=== PATIENT | male | born 1985 | race Caucasian/White ===

== ENCOUNTER 2018-03-24 08:10 | Inpatient (IN) | payer BC, OTHER ==
[~2018-03-24] VITALS: Ht 180.3 cm; Wt 120.7 kg
[2018-03-24] MEDS ORDERED: ONDANSETRON ODT 4 MG TAB.RAPDIS SL PRN (10:45)
[2018-03-24] MEDS ORDERED: HYDROXYZINE PAMOATE 25 MG CAPSULE PO PRN (10:45)
[2018-03-24] MEDS ORDERED: ONDANSETRON 4 MG/2 ML VIAL IM PRN (10:45)
[2018-03-24] MEDS ORDERED: MAGNESIUM HYDROXIDE 30 ML LIQUID UDC PO PRN (10:45)
[2018-03-24] MEDS ORDERED: LOPERAMIDE HCL 2 MG CAPSULE PO PRN ×2 (10:45)
[2018-03-24] MEDS ORDERED: MAG HYDROX/AL HYDROX/SIMETH 30 ML LIQUID UDC PO PRN (10:45)
[2018-03-24] MEDS ORDERED: MIRALAX 17 GM POWD.PACK PO PRN (10:45)
[2018-03-24] MEDS ORDERED: METHOCARBAMOL 750 MG TABLET PO PRN (10:45)
[2018-03-24] MEDS ORDERED: diphenhydrAMINE 50 MG CAPSULE PO PRN (10:45)
[2018-03-24] MEDS ORDERED: DICYCLOMINE HCL 20 MG TABLET PO PRN (10:45)
[2018-03-24] MEDS ORDERED: IBUPROFEN 600 MG TABLET PO PRN (10:45)
[2018-03-24] MEDS ORDERED: ACETAMINOPHEN 325 MG TABLET PO PRN (10:45)
--- NOTE | 2018-03-24 10:45 | NUR ---
Pre Assessment Pre-Assessment completed in intake office. Pt. is a 32 y/o male attempting to be admitted for the management of opiate withdrawal. Pt. A/O X 4, and denies any AH, VH, SI, and HI. Pt. presents with flushed facial skin, anxiety, restlessness and diaphoresis. Pt.'s affect is depressed. Pt. is ambulatory with a steady gait, continent with skin intact. Pt. reports consuming 15 tabs of Oxycodone 30mg a day for the past 8-9 months. Last consumed was 0400 this morning when pt. was getting ready to board his flight into [place]. Pt. reports a medical Hx of gout, asthma (with no inhaler use), depression, anxiety, and ADD. Pt. denies a past Hx of seizures. Pt. V/S at this moment are BP: 125/80, HR: 93, O2sat: 93%, RR:18, Temp: 98.7 pt. denies any pain at this time. Home Medications: Adderrall XR 15mg qD Clonazepam 0.5mg PRN qD Allopurinol 300mg qD Bupropion HCL XL 300mg qD Lamotrigine 200mg qHS Quetiapine Fumarate 50mg qHS Substance Use Hx: Pt. first used oxycodone at 30 y/o. Pt. consumes 15 tabs of oxycodone 30mg a day for the last 8-9 months. Last time consumed was this morning at about 0400. This is the pt.'s first time in treatment.
--- NOTE | 2018-03-24 11:30 | NUR ---
Admission Note Pt. is a 32 y/o male admitted for the management of opiate withdrawal. At the moment pt. was placed on PRN medication to manage his withdrawal symptoms. Pt. set to start a 5 day Subutex taper tomorrow morning 03/25/18. Pt. A/O X 4, and denies any AH, VH, SI, and HI. Pt. presents with flushed facial skin, anxiety, restlessness and diaphoresis. Pt.'s affect is flat with a depressed mood. Pt. is ambulatory with a steady gait, continent with skin intact. Pt. reports consuming 15 tabs of Oxycodone 30mg a day for the past 8-9 months. Last consumed was 0400 this morning when pt. was getting ready to board his flight into [place]. Pt. reports a medical Hx of gout, asthma (with no inhaler use), depression, anxiety, and ADD. Pt. denies a past Hx of seizures. Pt. V/S at this moment are BP: 137/92, HR: 91, O2sat: 100%, RR:14, Temp: 98.5 pt. denies any pain at this time. Home Medications: Adderrall XR 15mg qD Clonazepam 0.5mg PRN qD Allopurinol 300mg qD Bupropion HCL XL 300mg qD Lamotrigine 200mg qHS Quetiapine Fumarate 50mg qHS Substance Use Hx: Pt. first used oxycodone at 30 y/o. Pt. consumes 15 tabs of oxycodone 30mg a day for the last 8-9 months. Last time consumed was this morning at about 0400. This is the pt.'s first time in treatment. Pt. states he's never seriously tried to quit before. Pt. states he uses to "escape reality and to feel temporarily good." Pt. reports attempting to sober up 8-9 months ago and was able to stop using opiates for 4-5 days. The negative effects of withdrawal and the pt.'s ongoing struggle with depression triggered the pt.'s relapse. Pt. states " I dont want opiates in my life, I don't want to go where that road leads, and my use is starting to get out of control. I dont want to end up using heroin but I know thats where I'm headed." Pt. had Suboxone in his belongings and stated he's never taken it before. He states " A friend gave them to me because I keep wanting to quit but I just can't manage it on my own that's why I'm here." Pt. denies any family history of substance abuse. Medical Hx. Gout (only affects his left ankle), Asthma (pt. does not use inhaler), Depression, Anxiety, ADD Pt. states that a major reason for his use is ongoing struggle with depression. Pt. denies any previous mental health hospitalization, and denies any previous attempt at suicide. Pt. has Clonazepam as a home medication but denies abusing it. Pt. states " I only use it to take the edge off during social and public events." Pt. oriented to the units policies and procedures. Safety measures in place. Pt. currently only at a COW's of 10. Will continue to monitor pt.'s behavior for safety.
[2018-03-24 11:31] LABS: *AMPHETAMINE, URINE POSITIVE (NEGATIVE); *BARBITURATE, URINE NEGATIVE (NEGATIVE); *CANNABINOID, URINE NEGATIVE (NEGATIVE); *COCCAINE, URINE NEGATIVE (NEGATIVE); *OPIATE, URINE POSITIVE (NEGATIVE); *PHENCYCLIDINE SCREEN,URINE NEGATIVE (NEGATIVE)
[2018-03-24 11:48] LABS: BASOPHILS % (AUTO) 0.5 % (0.0-2.0); EOSINOPHILS # (AUTO) 0.6 K/uL (0.0-0.7); EOSINOPHILS % (AUTO) 7.1 % (0.0-7.0); HEMATOCRIT 41.9 % (36.7-47.1); HEMOGLOBIN 14.4 g/dL (12.5-16.3); LYMPHOCYTES # (AUTO) 3.8 K/uL (20.0-40.0); LYMPHOCYTES % (AUTO) 43.4 % (20.5-51.5); MEAN CORPUSCULAR HEMOGLOBIN 29.8 uug (23.8-33.4); MEAN CORPUSCULAR HGB CONC 34 g/dL (32.5-36.3); MONOCYTES # (AUTO) 0.7 K/uL (2.0-10.0); MONOCYTES % (AUTO) 7.9 % (0.0-11.0); NEUTROPHILS # (AUTO) 3.6 K/uL (1.8-8.9); NEUTROPHILS % (AUTO) 41.1 % (38.5-71.5); PLATELET COUNT (AUTO) 257 K/uL (152-348); RED BLOOD CELL COUNT(AUTO) 4.81 MIL/uL (4.06-5.63); WHITE BLOOD COUNT (AUTO) 8.7 K/uL (3.6-10.2)
[2018-03-24 12:00] VITALS: BP 137/92
[2018-03-24 12:06] LABS: ALANINE AMINOTRANSFERASE 69 U/L (16-63); ALKALINE PHOSPHATASE 83 U/L (50-136); ASPARTATE AMINOTRANSFERASE 39 U/L (15-37); BILIRUBIN,TOTAL 0.4 mg/dL (0.2-1.0); CARBON DIOXIDE 31 mmol/L (21-32); CHLORIDE 102 mmol/L (98-107); CREATININE 0.8 mg/dL (0.6-1.3); GLUCOSE 95 mg/dL (74-106); POTASSIUM 3.8 mmol/L (3.5-5.1); TOTAL PROTEIN, SERUM 7.4 g/dL (6.4-8.2); UREA NITROGEN, BLOOD 13 mg/dL (7-18)
[2018-03-24] MEDS ORDERED: BUPR300T54 PO (12:20)
[2018-03-24] MEDS ORDERED: AMPH15TA2 PO (12:20)
[2018-03-24] MEDS ORDERED: ALLO300T2 PO (12:20)
[2018-03-24] MEDS ORDERED: LAMO200T PO (12:20)
[2018-03-24] MEDS ORDERED: QUET50TA PO (12:20)
[2018-03-24] MEDS ORDERED: CLON0.5T12 PO (12:20)
[2018-03-24] MEDS: CLONIDINE HCL 0.1 MG TABLET PO PRN (12:23)
--- NOTE | 2018-03-24 12:23 | NUR ---
PRN Medication Pt. laying in bed with eyes open watching television. Pt. stated " I feel anxious is there anything you can give me for that." Pt. given PRN clonidine at this time. Will continue to monitor pt.'s behavior for medication effectiveness and safety.
[2018-03-24 12:47] LABS: ETHANOL < 3 MG/DL (0-0)
--- NOTE | 2018-03-24 13:30 | NUR ---
PRN Re-Assessment Pt. in bed with eyes closed. No signs of SOB noted. Medication effective. Will continue to monitor pt.'s behavior for safety.
[2018-03-24] MEDS ORDERED: EPIN0.3P3 IJ (14:04)
[2018-03-24] MEDS ORDERED: SIME125C81 PO (14:04)
[2018-03-24] MEDS ORDERED: DIPH25CA83 PO (14:04)
[2018-03-24] MEDS ORDERED: ASPI-973 PO (14:04)
[2018-03-24] MEDS ORDERED: BISA-79 PO (14:04)
[2018-03-24 17:05] VITALS: BP 138/93
[2018-03-24] MEDS ORDERED: Medication Not On Formulary EA (Bupropion Hcl (Bupropion Xl) 1 TAB) PO SCH (17:30)
[2018-03-24] MEDS: buPROPion XL 150 MG TAB.SR.24H PO SCH (17:43)
[2018-03-24] MEDS: QUETIAPINE FUMARATE 25 MG TABLET PO SCH (18:01)
[2018-03-24] MEDS: BUPRENORPHINE HCL 2 MG TAB.SUBL SL PRN ×2 (18:06→22:24)
--- NOTE | 2018-03-24 18:06 | NUR ---
PRN Medication Pt. presents with flushed facial skin, anxiety, restlessness, and is reporting 7/10 body aches. Gave pt. PRN Subutex at this time to manage withdrawal symptoms. Will continue to monitor pt.'s behavior for safety.
--- NOTE | 2018-03-24 18:53 | NUR ---
PRN Re-Assessment Pt. laying in bed with eyes closed. Respirations even and unlabored. Pt. still presents with facial flushing. Medication effective. Will continue to monitor for safety.
--- NOTE | 2018-03-24 19:00 | NUR ---
End of Shift Note Pt. is a 32 y/o male newly admitted for the medically managed withdrawal from opiates. Pt. was placed on PRN medications to help managed his symptoms. He is scheduled to begin a 5 day subutex taper tomorrow. Pt. presents with flushed facial skin, depressed mood, anxiety, restlessness and a flat affect. Once on the unit PRN Clonidine and Subutex given for withdrawal symptoms. Last CIWA of 16 at 1800. Safety measures in place. Will endorse pt.s care to oncoming shift.
--- NOTE | 2018-03-24 19:09 | NUR ---
Start of shift note Received report from day shift nurse. Pt is a 32 yo male, A+Ox4, presenting to [facility] for Opiate withdrawal. Pt noted to be irritable, fatigued, and agitated. Pt has HX of Gout, Asthma, Depression, and ADD which will be monitored during shift. Pt is to start 5 day Subutex taper tomorrow. Pt is on PRN medications until AM, tolerated well. Respirations even and unlabored. Will continue to monitor.
[2018-03-24 20:06] VITALS: BP 121/84
--- NOTE | 2018-03-24 20:07 | NUR ---
COWS: 14, Pt noted with piloerection of skin, irritability, anxiety, yawning, diffuse aching, enlarged pupils, restlessness, sweat on brow, and pulse rate between 81-100. Respirations even and unlabored. Will continue to monitor.
[2018-03-24] MEDS: LAMOTRIGINE 200 MG TABLET PO SCH (21:49)
--- NOTE | 2018-03-24 22:19 | NUR ---
COWS: 14, Pt noted with piloerection of skin, irritability, anxiety, yawning, diffuse aching, enlarged pupils, restless legs, sweat on brow, and pulse rate between 81-100. Respirations even and unlabored. Will continue to monitor.
--- NOTE | 2018-03-24 22:25 | NUR ---
PRN Subutex 4mg Pt c/o opiate withdrawal and noted with COWS: 14. PRN Subutex 4mg given and tolerated well. Will reassess within 30 minutes. Will continue to monitor.
--- NOTE | 2018-03-24 22:45 | NUR ---
PRN Subutex 4mg Reassessment COWS: 12. Medication effective. Pt expresses reduction in restlessness. No s/s of ASE noted at this time. Respirations even and unlabored. Will continue to monitor.
--- NOTE | 2018-03-25 00:58 | NUR ---
V/S refused and COWS deferred for sleep. Respirations even and unlabored. Will continue to monitor.
--- NOTE | 2018-03-25 04:13 | NUR ---
V/S refused and COWS deferred for sleep. Respirations even and unlabored. Will continue to monitor. Addendum: 03/25/18 at 0423 by LIBERTAD MAYEN LVN Pt woke up, will perform COWS assessment and V/S.
[2018-03-25 04:20] VITALS: BP 128/89
[2018-03-25] MEDS: BUPRENORPHINE HCL 2 MG TAB.SUBL SL PRN (04:20)
--- NOTE | 2018-03-25 04:23 | NUR ---
PRN Subutex 4mg Pt c/o opiate withdrawal and noted with COWS: 14. PRN Subutex 4mg given and tolerated well. Will reassess within 30 minutes. Respirations even and unlabored. Will continue to monitor.
--- NOTE | 2018-03-25 04:50 | NUR ---
PRN Subutex Reassessment Medication effective. Pt noted with COWS: 11. No s/s of ASE noted at this time. Respirations even and unlabored. Will continue to monitor.
--- NOTE | 2018-03-25 06:52 | NUR ---
End of shift note Pt was continuously noted with restlessness, sweating, agitation, anxiety, and general body aches. Pt remained in room for majority of shift except to get food from kitchen. Pt remained compliant and cooperative with all aspects of treatment. Pt was given PRN Subutex 4mg @2219 and @0421. Pt is on 5 day Subutex taper to start today. Pt slept for a total of 10 HRS. Last COWS: 11 @0450. Respirations even and unlabored. Will endorse to day shift nurse.
--- NOTE | 2018-03-25 07:30 | NUR ---
START OF SHIFT Pt 32 y/o male admitted for opiate withdrawal. Pt received with eyes closed resting but easily arousable to name. Perrla. Pt alert and oriented to name, place, and time. Skin warm and moist to touch. Respirations even and unlabored. Bilateral hand tremors noted. Pt appears disheveled and unkempt. Clothes and empty drink bottles scattered throughout the room. Encouraged to maintain hygiene. Pt anxious and irritable this morning. Pt also with c/o body aches this morning. It was reported that pt slept for 10 hours last night. It was reported that pt received subutex prn per MD order last night twice. Last reported cows=11 @ 0450. Pt is on a 5 day subutex taper and is on day 1. Bed on lowest position with side rails x2 up for safety. Call light within reach.
[2018-03-25 08:00] VITALS: BP 136/84
--- NOTE | 2018-03-25 08:00 | NUR ---
COWS ASSESSMENT cows=13. Pt observed with bilateral hand tremors. Perspiration on head and skin noted. Pt irritable and noted with episodes of clenching teeth. Pt anxious not able to lay still.
[2018-03-25 08:08] LABS: HEPATITIS B SURFACE AG Negative (Negative)
[2018-03-25] MEDS: BUPRENORPHINE HCL 2 MG TAB.SUBL SL SCH ×4 (08:16→21:30)
[2018-03-25] MEDS: MULTIVITAMINS,THERAPEUTIC TABLET PO SCH (08:16)
[2018-03-25] MEDS: buPROPion XL 150 MG TAB.SR.24H PO SCH (08:16)
[2018-03-25] MEDS ORDERED: METHOCARBAMOL 500 MG TABLET PO PRN (08:45)
[2018-03-25] MEDS ORDERED: 5 DAY TAPER BUPRENORPHINE -SERENITY PROTOCOL SL PRN (09:00)
[2018-03-25] MEDS ORDERED: TUBERCULIN,PURIF.PROT.DERIV. 5 TU/0.1 ML TEST ID ONE (09:00)
[2018-03-25 12:00] VITALS: BP 133/82
--- NOTE | 2018-03-25 12:00 | NUR ---
COWS ASSESSMENT cows=13. Pt observed with bilateral hand tremors. Pt easily irritable. Pt states skin is crawling. Pt anxious not able to lay still.
[2018-03-25 16:00] VITALS: BP 136/88
--- NOTE | 2018-03-25 16:00 | NUR ---
COWS ASSESSMENT cows=13. Pt observed with bilateral hand tremors. Pt irritable. Pt anxious not able to lay still. Pt with complaints of chills and sweats.
[2018-03-25] MEDS: QUETIAPINE FUMARATE 25 MG TABLET PO SCH (17:10)
--- NOTE | 2018-03-25 18:36 | NUR ---
END OF SHIFT Pt 32 y/o male admitted for opiate withdrawal. Pt alert and oriented to name, place, and time. Perrla. Skin warm and moist to touch. Respirations even and unlabored. Bilateral hand tremors noted. Pt isolative to room throughout the day. Pt appears disheveled. Clothes scattered throughout the room. Encouraged to maintain hygiene. Pt with flat affect. Pt with low motivation for self care. Pt did not attend group activity. Pt was seen by MD today. Pt medication compliant. Pt is on a 5 day subutex taper and is on day 1. Pt was c/o mostly chills, sweats, and body aches throughout the day. Last cows=13 @1600. Bed on lowest position with side rails x2 up for safety. Call light within reach.
--- NOTE | 2018-03-25 19:10 | NUR ---
Start of shift note Received report from day shift nurse. Pt is a 32 yo male, A+Ox4, presenting to [facility] for Opiate withdrawal. Pt noted to be fatigued, agitated, sweating, and having body aches. Pt has HX of Gout, Asthma, Depression, and ADD which will be monitored during shift. Pt is on 5 day Subutex taper, tolerated well. Respirations even and unlabored. Will continue to monitor.
[2018-03-25 20:18] VITALS: BP 125/76
--- NOTE | 2018-03-25 20:18 | NUR ---
COWS: 13. Pt noted with pulse between 81-100, chills, restlessness, enlarged pupils, mild body aches, stuffy nose, fine tremors, yawning, and piloerection of skin. Respirations even and unlabored. Will continue to monitor.
[2018-03-25] MEDS: LAMOTRIGINE 200 MG TABLET PO SCH (21:29)
--- NOTE | 2018-03-26 00:30 | NUR ---
V/S refused and COWS deferred for sleep. Respirations even and unlabored. Will continue to monitor.
--- NOTE | 2018-03-26 04:21 | NUR ---
V/S refused and COWS deferred for sleep. Respirations even and unlabored. Will continue to monitor.
--- NOTE | 2018-03-26 07:30 | NUR ---
START OF SHIFT Pt 32 y/o male admitted for opiate withdrawal. Pt received with eyes closed resting but easily arousable to name. Perrla. Pt alert and oriented to name, place, and time. Skin warm and moist to touch. Respirations even and unlabored. Bilateral hand tremors noted. Pt appears disheveled and unkempt. Empty drink bottles scattered throughout the room. Encouraged to maintain hygiene. Pt anxious this morning. It was reported that pt slept for 11 hours last night. Last reported cows=15 @ 2000. Pt is on a 5 day subutex taper and is on day 2. Bed on lowest position with side rails x2 up for safety. Call light within reach.
[2018-03-26 08:00] VITALS: BP 143/90
--- NOTE | 2018-03-26 08:00 | NUR ---
COWS ASSESSMENT cows=13. Pt with c/o chills/ sweats. Bilateral hand tremors noted. Pt states feels skin is crawling and has goosebumps.Pt irritable and anxious this morning.
[2018-03-26] MEDS: ALLOPURINOL 300 MG TABLET PO SCH (08:33)
[2018-03-26] MEDS: buPROPion XL 150 MG TAB.SR.24H PO SCH (08:33)
[2018-03-26] MEDS: BUPRENORPHINE HCL 2 MG TAB.SUBL SL SCH ×3 (08:33→21:53)
[2018-03-26] MEDS: MULTIVITAMINS,THERAPEUTIC TABLET PO SCH (08:33)
[2018-03-26 12:00] VITALS: BP 145/91
--- NOTE | 2018-03-26 12:00 | NUR ---
COWS ASSESSMENT cows=13. Pt with c/o chills and sweats. Perspiration noted all over bt's forehead. Bilateral hand tremors noted. Pt states feels skin is crawling and has goosebumps.Pt irritable and anxious this morning.
[2018-03-26 16:00] VITALS: BP 138/80
--- NOTE | 2018-03-26 16:00 | NUR ---
COWS ASSESSMENT cows=13. Pt with c/o chills and sweats. Skin warm and moist to touch. Bilateral hand tremors noted. Pt states has goosebumps. Pt irritable and anxious at this time. Pt not able to lay still in bed.
--- NOTE | 2018-03-26 18:25 | NUR ---
END OF SHIFT Pt 32 y/o male admitted for opiate withdrawal. Pt alert and oriented to name, place, and time. Perrla. Skin warm and moist to touch. Respirations even and unlabored. Bilateral hand tremors noted. Pt isolative to room throughout the day. Pt appears disheveled. Empty drink bottles scattered throughout the room. Encouraged to maintain hygiene. Pt with flat affect. Pt with low motivation for self care. Pt isolative to room throughout the day. Pt did not attend group activity. Pt was seen by MD today. Pt medication compliant. Pt is on a 5 day subutex taper and is on day 2. Last cows= 13@1600. Bed on lowest position with side rails x2 up for safety. Call light within reach.
--- NOTE | 2018-03-26 19:49 | NUR ---
START OF SHIFT NOTE Rcvd report from outgoing nurse, pt is in his room. Pt is a 32 y/o male A/O to person, place, time, and purpose. Pt was admitted for medically supervised withdrawal from Opiates (Oxycodone). Pt has a past medical h/o asthma, gout, depression, and ADHD. Pt is c/o and presents w/ anxiety (In the form of fidgety legs), sweats, and hot flashes. No PRN medications were given during the previous shift. Pt denies S/I and H/I. Last COWS 13 @ 1600. Call light is within reach. Pt will continue to be monitored and needs met.
[2018-03-26 20:00] VITALS: BP 126/93
--- NOTE | 2018-03-26 20:00 | NUR ---
COWS ASSESSMENT COWS 12. Pt presenting w/ anxiety, sweats, hot flahses, and fidgety legs.
[2018-03-26] MEDS: QUETIAPINE FUMARATE 25 MG TABLET PO SCH (21:53)
[2018-03-26] MEDS: LAMOTRIGINE 200 MG TABLET PO SCH (21:53)
--- NOTE | 2018-03-26 21:53 | NUR ---
PRN BENADRYL ADMINISTRATION Benadryl 50mg given for sleep. Pt c/o insomnia. V/S are stable. Will reassess pt in 1 hr.
--- NOTE | 2018-03-26 22:53 | NUR ---
PRN BENADRYL REASSESSMENT Pt is in bed w/ his eyes closed. Pt's respirations are unlabored and even.
--- NOTE | 2018-03-27 | NUR ---
COWS DEFERRED AND V/S REFUSED Pt is in bed w/ his eyes closed. Pt's respirations are even and unlabored.
--- NOTE | 2018-03-27 04:01 | NUR ---
COWS DEFERRED AND V/S REFUSED Pt is in bed w/ his eyes closed. Pt's respirations are unlabored and even.
--- NOTE | 2018-03-27 07:14 | NUR ---
END OF SHIFT NOTE Endorsed pt to oncoming nurse, pt is currently in his room. Pt is a 32 y/o male A/O to person, place, time, and purpose. Pt was admitted for medically supervised withdrawal from Opiates (Oxycodone). Pt has a past medical h/o asthma, gout, depression, and ADHD. Pt is c/o and presents w/ anxiety (In the form of fidgety legs), insomnia, sweats, and hot flashes. PRN Benadryl 50mg given @ 2150 for sleep, noted effective. Pt's fluid intake was 1.300 ml and he voided 1 time. Pt slept for 6.5 hrs. Last COWS 12 @ 2000. Call light is within reach.
[2018-03-27 08:00] VITALS: BP 135/74
--- NOTE | 2018-03-27 08:00 | NUR ---
COWS ASSESSMENT 0800 COWS 14. PT HAS A FLAT AFFECT, PRESENTS ANXIETY, AGITATION, RESTLESSNESS, PUPILS LARGER THAN NORMAL, GENERALIZED BODY ACHES, INTERMITTENT COLD/HOT FLASHES AND GOOSEBUMPS, DIAPHORESIS, TREMORS ARE NOTED.
--- NOTE | 2018-03-27 08:00 | NUR ---
START OF SHIFT PT IS A 32 Y/O M ADMITTED ON FOR MEDICALLY SUPERVISED OPIATE- OXYCODONE WITHDRAWAL. PT IS PLACED ON 5 DAY SUBUTEX TAPER AND TOLERATING WELL. PT IS A/OX4, RESPIRATIONS EVEN AND UNLABORED. PT PRESENTS A FLAT AFFECT, ANXIETY, AGITATION, RESTLESSNESS, HOT/COLD FLASHES, DIAPHORESIS, PT HAS FIDGETY MOVEMENT OF THE LEGS. PT SLEPT 7 HRS, BENADRYL PRN GIVEN LAST SHIFT. LAST COWS 12. EDUCATED PT WITH TODAY'S PLAN OF CARE AND MED REGIMEN. SIDE RAILS UPX2 AND PADDED, BED IN LOWEST POSITION. CALL LIGHT WITHIN REACH. SAFETY MEASURES IN PLACE. WILL CONTINUE TO MONITOR.
[2018-03-27] MEDS ORDERED: BUPRENORPHINE HCL 2 MG TAB.SUBL SL SCH (09:00)
[2018-03-27] MEDS: MULTIVITAMINS,THERAPEUTIC TABLET PO SCH (09:31)
[2018-03-27] MEDS: ALLOPURINOL 300 MG TABLET PO SCH (09:31)
[2018-03-27] MEDS: buPROPion XL 150 MG TAB.SR.24H PO SCH (09:35)
[2018-03-27 12:00] VITALS: BP 128/94
--- NOTE | 2018-03-27 12:00 | NUR ---
COWS ASSESSMENT 1200 COWS 15. PT IS CURRENTLY SITTING IN HIS ROOM BY THE WINDOW LOOKING OUTSIDE. PT PRESENTS A FLAT AFFECT, INTERMITTENT CHILLS, DIAPHORETIC, RESTLESSNESS, PUPILS LARGER THAN NORMAL, GENERALIZED BODY ACHES, HR:99 AND TREMORS NOTED.
[2018-03-27] MEDS: BUPRENORPHINE HCL 2 MG TAB.SUBL SL SCH ×2 (15:07→21:32)
[2018-03-27 16:00] VITALS: BP 149/94
--- NOTE | 2018-03-27 16:00 | NUR ---
COWS ASSESSMENT 1600 COWS 14. PT REFUSED TO GO TO GROUPS, IS WITHDRAWN, CONTINUES TO HAVE RESTLESSNESS, ANXIETY, AGITATION, RESTLESSNESS, GENERALIZED BODY ACHES, INTERMITTENT COLD/HOT FLASHES AND DIAPHORESIS, TREMORS ARE NOTED. Addendum: 03/27/18 at 1725 by SORAIDA COVARRUBIAS RN BP: 149/94 HR: 99, RR: 18, O2SAT: 100%, TEMP: 98.8
--- NOTE | 2018-03-27 19:43 | NUR ---
END OF SHIFT PT IS REFUSES TO GO TO GROUPS AND STATED, "I WILL BE GOING TO GROUPS ALL DAY AT THE TREATMENT CENTER. PT HAS BEEN ISOLATIVE IN ROOM AND IS WITHDRAWN. 0 PRNS GIVEN. LAST COWS 14. FLUID INTAKE 2134ML, VOIDED X3, BM X1. SAFETY MEASURES IN PLACE. ENDORSEMENT GIVEN TO FIRE HYDRANT OPERATOR NURSE.
--- NOTE | 2018-03-27 19:53 | NUR ---
START F SHIFT NOTE Rcvd report from outgoing nurse, pt is currently in group therapy. Pt is a 32 y/o male A/O to person, place, time, and purpose. Pt was admitted for medically supervised withdrawal from Opiates. Pt has been c/o body aches, sweats, chills, and hot flashes. Pt has been presenting w/ depressed and withdrawn mood, flat affect, anxiety, agitation/fidgety, and fine tremors. Pt denies any S/I and H/I. Pt rcvd no PRN medications during previous shift. Last COWS 14 @ 1600. Call light is within reach. Pt will continue to be monitored and needs met.
[2018-03-27 20:00] VITALS: BP 133/87
--- NOTE | 2018-03-27 20:03 | NUR ---
COWS ASSESSMENT COWS 12. Pt experiencing anxiety, agitation, fine tremors, body aches, and hot flashes w/ sweats.
[2018-03-27] MEDS: LAMOTRIGINE 200 MG TABLET PO SCH (21:32)
[2018-03-27] MEDS: QUETIAPINE FUMARATE 25 MG TABLET PO SCH (21:32)
[2018-03-27] MEDS: CLONIDINE HCL 0.1 MG TABLET PO PRN (21:33)
--- NOTE | 2018-03-27 21:33 | NUR ---
PRN CLONIDINE ADMINISTRATION Clonidine 0.1mg given. Pt c/o anxiety, sweats, chills, and hot flashes. BP 133/87. Will reassess pt in 1 hr.
--- NOTE | 2018-03-27 22:33 | NUR ---
MATT JONES REASSESSMENT Pt is in bed w/ his eyes closed. Pt's respirations are unlabored and even. Addendum: 03/27/18 at 2315 by CHAN MCMILLAN RN MATT GRIMALDO REASSESSMENT Pt is in bed w/ his eyes closed. Pt's respirations are unlabored and even.
--- NOTE | 2018-03-28 00:04 | NUR ---
COWS DEFERRED AND V/S REFUSED Pt is in bed w/ his eyes closed. Pt's respirations are unlabored and even.
--- NOTE | 2018-03-28 04:03 | NUR ---
COWS DEFERRED AND V/S REFUSED Pt is in bed w/ his eyes closed. Pt's respirations are unlabored and even.
--- NOTE | 2018-03-28 07:10 | NUR ---
END OF SHIFT NOTE Endorsed pt to oncoming nurse, pt is currently in his room. Pt is a 32 y/o male A/O to person, place, time, and purpose. Pt was admitted for medically supervised withdrawal from Opiates. Pt continues to c/o body aches, sweats, chills, and hot flashes. Pt continues to present w/ depressed and withdrawn mood, flat affect, anxiety, agitation/fidgety, and fine tremors. PRN Clonidine 0.1mg given @ 2133 for anisety, sweats, and chills, noted effective. Pt's fluid intake was 1010 ml and he voided 2 times. Pt slept for 7.5 hrs. Last COWS 12 @ 2000. Call light is within reach.
[2018-03-28 08:00] VITALS: BP 138/89
--- NOTE | 2018-03-28 08:15 | NUR ---
START OF SHIFT: Received Pt A/O X 4. He presents with blunted affect and depressed mood. He denies S/I and H/I. He reports chills and sweats along with body aches and restlessness. COWS 12. Subutex taper in progress to manage s/s of w/d. Encouraged increased fluids to assist in facilitating detox process. Encouraged group attendance to improve coping skills and prevent relapse. Will continue to monitor and offer support.
[2018-03-28] MEDS: MULTIVITAMINS,THERAPEUTIC TABLET PO SCH (08:36)
[2018-03-28] MEDS: ALLOPURINOL 300 MG TABLET PO SCH (08:36)
[2018-03-28] MEDS: BUPRENORPHINE HCL 2 MG TAB.SUBL SL SCH ×3 (08:37→21:53)
[2018-03-28] MEDS: buPROPion XL 150 MG TAB.SR.24H PO SCH (08:37)
[2018-03-28 12:00] VITALS: BP 143/100
--- NOTE | 2018-03-28 12:20 | NUR ---
COWS 10 He presents with blunted affect. Fine tremors observed. He reports anxiety ,restlessness and intermittent sweats.
[2018-03-28] MEDS: CLONIDINE HCL 0.1 MG TABLET PO PRN ×2 (12:34→21:54)
--- NOTE | 2018-03-28 12:35 | NUR ---
PRN Clonidine given for BP 143/100 P 88. Pt is asymptomatic.Will monitor effectiveness of PRN med.
[2018-03-28 13:00] VITALS: BP 132/80
--- NOTE | 2018-03-28 13:35 | NUR ---
PRN Clonidine effective. BP 132/80 P 106. Will continue to monitor.
[2018-03-28 16:00] VITALS: BP 135/80
--- NOTE | 2018-03-28 16:10 | NUR ---
COWS 10 Fine tremors observed. He reports anxiety ,restlessness and intermittent sweats.
--- NOTE | 2018-03-28 18:12 | NUR ---
Client was prompted to attend the twice daily groups during the remainder of his stay in the program.
--- NOTE | 2018-03-28 18:54 | NUR ---
END OF SHIFT: Pt continues on Subutex taper to manage s/s of w/d which include sweats,fine tremors,chills,body aches and restlessness. he is disheveled. Clonidine PRN given for elevated BP and was effective. He is compliant with increased fluids and attended morning group. He is isolative. Little interaction with peers noted. Will pass shift report to oncoming night nurse.
--- NOTE | 2018-03-28 19:58 | NUR ---
START OF SHIFT NOTE Rcvd report from outgoing nurse, pt is currently in group therapy. Pt is a 32 y/o male A/O to person, place, time, and purpose. Pt was admitted for medically supervised withdrawal from Opiates. Pt has been c/o body aches, sweats, and hot flashes. Pt has been presenting w/ depressed and withdrawn mood, isolative, flat affect, tremors, agitation, and anxiety. Pt denies S/I and H/I. PRN Clonidine 0.1mg for elevated BP (143/100), noted effective. Last COWS 10 @ 1600. Call light is within reach. Pt will continue to be monitored and needs met.
[2018-03-28 20:00] VITALS: BP 118/83
--- NOTE | 2018-03-28 20:00 | NUR ---
COWS ASSESSMENT COWS 9. Pt presenting w/ anxiety, slight tremors, moist eyes, mild body aches, flushing/hot flashes, and enlarged pupils.
[2018-03-28] MEDS: LAMOTRIGINE 200 MG TABLET PO SCH (21:53)
[2018-03-28] MEDS: QUETIAPINE FUMARATE 25 MG TABLET PO SCH (21:53)
--- NOTE | 2018-03-28 21:53 | NUR ---
PRN CLONIDINE ADMINISTRATION PRN Clonidine 0.1mg given for s/s of withdrawal. Pt c/o of sweats, hot flashes, and chills. Will reassess pt in 1 hr.
--- NOTE | 2018-03-28 22:53 | NUR ---
PRN CLONIDINE REASSESSMENT Pt is in bed w/ his eyed closed. Pt's respirations are unlabored and even.
--- NOTE | 2018-03-29 | NUR ---
COWS DEFERRED AND V/S REFUSED Pt is in bed w/ his eyes closed. Pt's respirations are unlabored and even.
--- NOTE | 2018-03-29 04:03 | NUR ---
COWS DEFERRED AND V/S REFUSED Pt is in bed w. his eyes closed. Pt's respirations are ulabored and even.
--- NOTE | 2018-03-29 07:08 | NUR ---
END OF SHIFT NOTE Endorsed pt to oncoming nurse, pt is currently in his room. Pt is a 32 y/o male A/O to person, place, time, and purpose. Pt was admitted for medically supervised withdrawal from Opiates. Pt has been c/o body aches, sweats, and hot flashes. Pt has been presenting w/ depressed and withdrawn mood, isolative, flat affect, agitation, and anxiety. PRN Clonidine 0.1mg given for sweats, chills, and anxiety, noted effective. Pts fluid intake was 1810ml and he voided 3 times. Pt slept for 9 hrs. Last COWS 9 @ 2000. Call light is within reach.
--- NOTE | 2018-03-29 07:45 | NUR ---
START OF SHIFT Pt is a 32 yr old male, AA&Ox4. Pt was admitted on 03/24/18 for Opiate withdrawal and is on 5 day Subutex taper as ordered. Medication maya well. Received report from parking manager nurse. Pt received Clonidine PRN during the night. Medication was effective. Pt slept fo 8 hrs. Last COWS score was 9 during the night. Pt is currently c/o anxiety, agitation, sweats and chills. Skin is intact, warm and moist to touch. Pt was encouraged increase fluid intake for hydration. Safety precautions observed. Call light is within reach. Will continue to monitor.
[2018-03-29 08:00] VITALS: BP 127/92
[2018-03-29] MEDS ORDERED: BUPRENORPHINE HCL 2 MG TAB.SUBL SL SCH (09:00)
[2018-03-29] MEDS: MULTIVITAMINS,THERAPEUTIC TABLET PO SCH (09:44)
[2018-03-29] MEDS: ALLOPURINOL 300 MG TABLET PO SCH (09:44)
[2018-03-29] MEDS: buPROPion XL 150 MG TAB.SR.24H PO SCH (10:45)
[2018-03-29 12:00] VITALS: BP 132/86
--- NOTE | 2018-03-29 13:13 | NUR ---
Client was prompted to attend daily group counseling sessions.
[2018-03-29 16:00] VITALS: BP 144/88
[2018-03-29] MEDS: CLONIDINE HCL 0.1 MG TABLET PO PRN (18:24)
--- NOTE | 2018-03-29 18:25 | NUR ---
PRN Clonidine 0.1mg PO and Vistaril 25mg Po given for anxiety / agitation Patient is sweating and irritable. will endorse to next shift to reassess
--- NOTE | 2018-03-29 19:20 | NUR ---
END OF SHIFT Pt is a 32 yr old male, AA&Ox4. Pt was admitted on 03/24/18 for Opiate withdrawal and has completed 5 day Subutex taper as ordered. Pt has been cooperative with medication regimen and plan of care. Pt has been attending group therapy. Pt was c/o anxiety, agitation, chills and sweats. Pt received Clonidine 0.1mg PO PRN and Vistaril 25mg PO PRN at 1824 for increase anxiety and agitation. Medication was effective. Last COWS score was 8 at 1600. Pt is to be discharged tomorrow on 03/30/18. Safety precautions observed. Call light is within reach. Endorsed to yarn mercerizer operator helper nurse to continue with care.
--- NOTE | 2018-03-29 19:30 | NUR ---
START OF SHIFT NOTE RECEIVED REPORT FROM DAY SHIFT NURSE. PATIENT IS A 32 YEAR OLD MALE ADMITTED FOR OPIATE WITHDRAWAL. PATIENT COMPLETED 5 DAY SUBUTEX TAPER. PATIENT IS MEDICALLY DISCHARGE TOMORROW. SKIN INTACT. PATIENT WAS C/O AGITATION AND ANXIETY DURING THE DAY. PRN CLONIDINE AND VISTARIL WAS GIVEN. LAST COWS 8. PATIENT IN THE GROUP AT THIS TIME. SAFETY MEASURES IN PLACE. CALL LIGHT IN REACH. WILL CONTINUE TO MONITOR. Addendum: 03/30/18 at 0529 by RUSSELL BARR LVN PRN CLONIDINE AND VISTARIL RE-ASSESSMENT PATIENT STATES CLONIDINE AND VISTARIL HELPFUL AND EFFECTIVE. PATIENT IS LESS ANXIOUS.
[2018-03-29 20:00] VITALS: BP 135/92
--- NOTE | 2018-03-29 20:00 | NUR ---
COWS ASSESSMENT PATIENT PRESENTS WITH FLAT AFFECT, DEPRESSED MOOD, SAD, WORRIED, EYE AVOIDANT, ANXIETY, SWEATS, FACE FLUSHED, YAWNING AND TREMORS FELT BUT NOT OBSERVED. PATIENTS ROOM ODOROUS . COWS 8.
[2018-03-29] MEDS: LAMOTRIGINE 200 MG TABLET PO SCH (21:11)
[2018-03-29] MEDS: QUETIAPINE FUMARATE 25 MG TABLET PO SCH (21:11)
--- NOTE | 2018-03-30 | NUR ---
COWS DEFERRED PATIENT SLEEPING. RESPIRATION EVEN AND UNLABORED. VS REFUSED. WILL CONTINUE TO MONITOR
[2018-03-30] MEDS ORDERED: CLON0.1T14 PO (02:09)
[2018-03-30] MEDS ORDERED: HYDR-3895 PO (02:09)
--- NOTE | 2018-03-30 04:00 | NUR ---
COWS DEFERRED PATIENT SLEEPING. RESPIRATION EVEN AND UNLABORED. VS REFUSED. WILL CONTINUE TO MONITOR
--- NOTE | 2018-03-30 07:07 | NUR ---
END OF SHIFT NOTE PATIENT SLEPT 8 HOURS. FLUID INTAKE 1,055 ML. VOIDED X 2 .NO BM. PATIENT COMPLETED 5 DAY SUBUTEX TAPER AND MEDICALLY CLEARED TO BE DISCHARGE TODAY. PATIENT WITHDRAWN . PATIENT PRESENTED WITH FLAT AFFECT, DEPRESSED MOOD, SAD, WORRIED, EYE AVOIDANT, ANXIETY, SWEATS, FACE FLUSHED, YAWNING AND TREMORS FELT BUT NOT OBSERVED. PATIENT ATTENDED GROUPS. PATIENT DID NOT REQUIRE PRN MEDICATION. SAFETY MEASURES IN PLACE. CALL LIGHT IN REACH. WILL CONTINUE TO MONITOR. COWS 8.
--- NOTE | 2018-03-30 07:30 | NUR ---
START OF SHIFT Pt is a 32 yr old male, AA&Ox4. Pt was admitted on 03/24/18 for Opiate withdrawal and has completed a 5 day Subutex taper as ordered. Medication maya well. Received report from customer success specialist nurse. No PRN's were given during the night. Pt slept fo 8 hrs. Last COWS score was 8 during the night. Pt is currently c/o anxiety and agitation. Pt is noted with facial sweats. Skin is intact, warm and moist to touch. Pt states of feeling anxious due to discharged. Pt is to be discharged today to [facility]. Will continue to f/u. Pt was encouraged increase fluid intake for hydration. Safety precautions observed. Call light is within reach.
[2018-03-30 08:00] VITALS: BP 129/89
[2018-03-30] MEDS: ALLOPURINOL 300 MG TABLET PO SCH (08:20)
[2018-03-30] MEDS: MULTIVITAMINS,THERAPEUTIC TABLET PO SCH (08:20)
[2018-03-30] MEDS: buPROPion XL 150 MG TAB.SR.24H PO SCH (08:20)
--- NOTE | 2018-03-30 09:50 | NUR ---
DISCHARGE NOTE Pt is a 32 yr old male, AA&Ox4. Pt was admitted on 03/24/18 for Opiate withdrawal and has completed a 5 day Subutex taper as ordered. Medication maya well. Pt has been cooperative with medication regimen and plan of care. Pt was noted with anxiety due to discharged but is able to cope with anxiety level. No SI/HI. Pt was educated on discharged summary and prescription. Pt was able to verbalize understanding. Pt was discharged to [facility] and escorted off the unit at 0940 in stable condition. Pt left with all belongings, home medications and valuables.
== END 2018-03-30 09:40 | disposition other institution (70) | DRG 895 ==
LOC: SRC 09:44
PROVIDERS: ADMIT Family Medicine Addiction Medicine; ATTEND Family Medicine Addiction Medicine
PROC: HZ2ZZZZ Detoxification Services for Substance Abuse Treatment (ICD-10-PCS; principal; 2018-03-24)
PROC: HZ41ZZZ Group Counseling for Substance Abuse Treatment, Behavioral (ICD-10-PCS; 2018-03-28)
DX: F15.23 Other stimulant dependence with withdrawal (principal); F31.60 Bipolar disorder, current episode mixed, unspecified; F11.23 Opioid dependence with withdrawal; M10.9 Gout, unspecified; F90.9 Attention-deficit hyperactivity disorder, unspecified type; J45.909 Unspecified asthma, uncomplicated; Z81.8 Family history of other mental and behavioral disorders; Z79.899 Other long term (current) drug therapy; F12.10 Cannabis abuse, uncomplicated; F41.9 Anxiety disorder, unspecified; F17.200 Nicotine dependence, unspecified, uncomplicated; G47.00 Insomnia, unspecified
CPT/HCPCS: 36415; 70030-TC; 80307; 83735; 85025; 86580; 86592; 86705; 86803; 87340; 87806; A4663; G0480; Q0163